=== PATIENT | female | born 1970 | race Two or more races ===

== ENCOUNTER 2017-12-20 08:17 | Day surgery (SDC) | payer OTHER ==
[~2017-12-20 08:17] MED LIST: ZEBETA5 MG PO
== END 2017-12-20 14:25 | disposition home or self-care (01) ==
LOC: AMB-ENDOS 08:17
DX: D13.1 Benign neoplasm of stomach (principal)

== ENCOUNTER → 2021-11-28 | Outpatient (CLI) | payer OTHER | END | disposition home or self-care (01) | LOC: SONOGRAMA 08:53 | PROVIDERS: ATTEND Obstetrics & Gynecology | DX: N84.0 Polyp of corpus uteri (principal) ==

== ENCOUNTER → 2021-12-27 | Day surgery (SDC) | payer OTHER ==
[~2021-12-27] VITALS: Ht 162.6 cm; Wt 74.8 kg
== END | disposition home or self-care (01) ==
LOC: ADM 12-25 07:45 → CIR.AMB 07:45
PROVIDERS: ATTEND Obstetrics & Gynecology
DX: D25.0 Submucous leiomyoma of uterus (principal); Z20.822 Contact with and (suspected) exposure to COVID-19; I10 Essential (primary) hypertension

== ENCOUNTER 2023-11-29 08:42 | Outpatient (CLI) | payer OTHER | END 2023-11-29 08:59 | disposition home or self-care (01) | LOC: SONOGRAMA 08:42 | PROVIDERS: ATTEND Obstetrics & Gynecology | DX: N92.0 Excessive and frequent menstruation with regular cycle (principal); D25.9 Leiomyoma of uterus, unspecified; N84.0 Polyp of corpus uteri ==

== ENCOUNTER 2024-09-27 23:21 | Emergency (ER) | payer OTHER ==
[~2024-09-27] VITALS: Ht 162.6 cm; Wt 64.4 kg
[2024-09-28 04:34] LABS: BASO % 1.3 % (0.1-1.2); EOS # 0.01 (0.04-0.54); EOS % 0.1 % (0.7-7.0); HEMATOCRIT 42.4 % (34.1-44.9); HEMOGLOBIN 14.1 g/dL (11.2-15.7); LYMPH # 1.75 (1.18-3.74); LYMPH % 25.7 % (19.3-53.1); MEAN CORPUSCULAR HEMOGLOBIN 29.6 pg (25.6-32.2); MONO # 0.36 (0.24-0.82); MONO % 5.3 % (4.7-12.5); NEUT % 67.5 % (34.0-71.1); PLATELET COUNT 224 K/uL (163-369); RED BLOOD COUNT 4.77 M/uL (3.93-5.22)
[2024-09-28 05:23] LABS: PH,URINE 6.5 (5.0-8.0); URINE APPEARANCE Clear; URINE BILIRRUBIN Negative (NEGATIVE); URINE BLOOD Negative; URINE COLOR Yellow; URINE GLUCOSE Negative (NEGATIVE); URINE KETONE Trace (NEGATIVE); URINE LEUKOCYTE Negative; URINE NITRATE Negative; URINE PROTEIN Negative (NEGATIVE); URINE UROBILINOGEN 0.2 E.U./dl
[2024-09-28 05:27] LABS: URINE BACTERIA 37.9 uL (0.0-1933); URINE EPITHELIAL CELLS 24.3 uL (0.0-38.8); URINE WBC 13.6 uL (0.0-23.2)
[2024-09-28 05:30] LABS: URINE RBC 1.4 uL (0.0-20.8)
[2024-09-28 05:57] LABS: CALCIUM 9.2 mg/dL (8.5-10.1); CREATININE SERUM 0.71 mg/dL (0.55-1.02); GFR 85.78; POTASSIUM 4.76 mEq/L (3.5-5.1)
== END 2024-09-28 08:12 ==
LOC: ER 23:45
PROVIDERS: General Practice
DX: N89.8 Other specified noninflammatory disorders of vagina (principal); I10 Essential (primary) hypertension

== ENCOUNTER 2025-04-08 03:29 | Emergency (ER) | payer OTHER ==
[~2025-04-08] VITALS: Ht 162.6 cm; Wt 68.9 kg
[2025-04-08] MEDS ORDERED: BISOPROLOL FUMAR5 MG PO (04:21)
[2025-04-08] MEDS ORDERED: RINGERS SOLUTION,LACTATED 1,000 ML IV ONE (06:15)
[2025-04-08 08:25] LABS: BASO % 0.5 % (0.1-1.2); EOS # 0.01 (0.04-0.54); EOS % 0.1 % (0.7-7.0); LYMPH # 1.56 (1.18-3.74); LYMPH % 16.7 % (19.3-53.1); MEAN PLATELET VOLUME 10.90 fl (9.4-12.4); MONO # 0.47 (0.24-0.82); MONO % 5.0 % (4.7-12.5); NEUT # 7.24 (1.56-6.13); NEUT % 77.5 % (34.0-71.1); RED CELL DISTRIBUTION WIDTH 12.7 % (11.6-14.4)
[2025-04-08 08:39] LABS: INR 0.96
[2025-04-08 09:22] LABS: ALT/SGPT 20 U/L (12-78); AST/SGOT 16 U/L (15-37); BILIRUBIN TOTAL 0.86 mg/dL (0.3-1.2); BUN CREA RATIO 15 (7.0-25.0); CREATININE SERUM 0.61 mg/dL (0.55-1.02); GFR 102.21; GLOBULINA 3.6 G/DL (2.4-3.5); GLUCOSE FASTING 110 mg/dL (65-100); OSMOLALITY SERUM 282 MOSM/KG (275-295)
[2025-04-08 09:24] LABS: HCG QUANTITATIVE < 1 mUI/mL (1-3)
[2025-04-08 09:57] LABS: BASO % 0.9 % (0.1-1.2); EOS # 0.01 (0.04-0.54); EOS % 0.1 % (0.7-7.0); LYMPH # 1.88 (1.18-3.74); LYMPH % 20.0 % (19.3-53.1); MEAN PLATELET VOLUME 11.10 fl (9.4-12.4); MONO # 0.64 (0.24-0.82); MONO % 6.8 % (4.7-12.5); NEUT # 6.77 (1.56-6.13); NEUT % 72.0 % (34.0-71.1); RED CELL DISTRIBUTION WIDTH 12.7 % (11.6-14.4)
[2025-04-08] MEDS ORDERED: MEGESTROL ACETATE 40 MG TABLET PO ONE (13:45)
[2025-04-08 15:11] LABS: BASO % 0.8 % (0.1-1.2); EOS # 0.01 (0.04-0.54); EOS % 0.1 % (0.7-7.0); LYMPH # 1.56 (1.18-3.74); LYMPH % 18.5 % (19.3-53.1); MEAN PLATELET VOLUME 11.10 fl (9.4-12.4); MONO # 0.68 (0.24-0.82); MONO % 8.1 % (4.7-12.5); NEUT # 6.09 (1.56-6.13); NEUT % 72.3 % (34.0-71.1); RED CELL DISTRIBUTION WIDTH 12.7 % (11.6-14.4)
[2025-04-08] MEDS ORDERED: MEGESTROL ACETA40 MG PO (15:33)
== END 2025-04-08 17:10 | disposition home or self-care (01) ==
LOC: ER 03:30
PROVIDERS: General Practice
DX: D25.9 Leiomyoma of uterus, unspecified (principal); N93.9 Abnormal uterine and vaginal bleeding, unspecified